=== PATIENT | male | born 1960 | race American Indian/Alaskan Native ===

== ENCOUNTER 2017-08-02 08:10 | Emergency (ER) | payer MEDICAID ==
[2017-08-02 08:13] VITALS: BMI 28.7
--- NOTE | 2017-08-02 08:43 | ED PDOC ---
HPI: Skin/Bite Injury Time Seen by Provider: 08/02/17 08:30 Chief Complaint (Nursing): Male Genitourinary History Per: Patient Onset/Duration Of Symptoms: Days (7) Current Symptoms Are (Timing): Still Present Quality Of Symptoms: Swollen Severity: Mild Additional Complaint(s): Mild swelling inferior scrotal area x 1 week. Denies fever or drainage. No injury or trauma Past Medical History Vital Signs: Last Vital Signs Temp 97 F L 08/02/17 08:14 Pulse 91 H 08/02/17 08:14 Resp 20 08/02/17 08:14 BP 121/77 08/02/17 08:14 Pulse Ox 97 08/02/17 08:14 - Medical History PMH: Diabetes, HTN - Family History Family History: States: Unknown Family Hx - Home Medications Home Medications: Ambulatory Orders Medication Instructions Recorded Naproxen [Naprosyn] 500 mg PO Q12H #20 tab 08/02/17 Sulfamethoxazole/Trimethoprim 1 tab PO BID #20 tab 08/02/17 [Bactrim DS 800 mg-160 mg] - Allergies Allergies/Adverse Reactions: Allergies Allergy/AdvReac Type Severity Reaction Status Date / Time No Known Allergies Allergy Verified 08/02/17 08:26 Review of Systems Constitutional: Negative for: Fever Genitourinary Male: Positive for: Other (Scrotal swelling) Physical Exam - Physical Exam Appears: Positive for: Non-toxic, No Acute Distress Skin: Positive for: Normal Color, Warm Male Genital Exam: Positive for: other (Inferior scrotal area, 1 cm cystic mass , nontender, minimal fluctuance, no erythema warmth or tenderness.) - ECG O2 Sat by Pulse Oximetry: 97 Medical Decision Making Medical Decision Making: Pt requesting drainage of area. Explained that this is most likely a cyst and drainage will not produce pus. Pt requests to have it done anyway. Area prepped in sterile fashion and 18 g needle used to aspirate min imal amount of purulent drainage. Minimal sanguinous drainage afterward. Disposition - Clinical Impression Clinical Impression: Scrotal cyst - Patient ED Disposition Is Patient to be Admitted: No Counseled Patient/Family Regarding: Diagnosis, Need For Followup, Rx Given - Disposition Referrals: Taz Castle Jr., MD [Staff Provider] - Disposition: Routine/Home Disposition Time: 08:46 Condition: FAIR Prescriptions: Naproxen [Naprosyn] 500 mg PO Q12H #20 tab Sulfamethoxazole/Trimethoprim [Bactrim DS 800 mg-160 mg] 1 tab PO BID #20 tab Instructions: Epidermal Cyst
[2017-08-02 09:09] VITALS: BP 119/67; PULSE 84; RESP 18; TEMP 98.2; O2SAT 100
== END 2017-08-02 09:08 | disposition home or self-care (01) ==
LOC: H.ER 08:10
DX: N44.2 Benign cyst of testis (principal)